=== PATIENT | male | born 1995 | race Hispanic/Latino ===

== ENCOUNTER 2020-07-05 15:45 | Emergency (ER) | payer OTHER, SELFPAY ==
[2020-07-05 16:09] LABS: #Basophils 0.1 thou/uL (0.0-0.2); #Eosinphils 0.3 thou/uL (0.0-0.7); #Lymphocytes 3.1 thou/uL (1.20-3.40); #Monocytes 0.5 thou/uL (0.11-0.59); #Neutrophils 3.8 thou/uL (1.40-6.50); %Basophils 1.1 % (0.0-1.0); %Eosinophils 4.3 % (0.0-10.0); %Lymphocytes 39.2 % (21.0-51.0); %Monocytes 6.7 % (0.0-10.0); %Neutrophils 48.7 % (42.0-75.0); Hemoglobin 14.8 g/dL (14.0-18.0); Mean Corpuscular HGB CONC 32.7 g/dL (32.0-36.0); Mean Corpuscular Hemoglobin 30.4 pg (27.0-31.0); Mean Corpuscular Volume 92.8 fL (78.0-98.0); Platelet Count 292 thou/uL (130-400); RBC Distribution Width 12.7 % (11.5-14.5); Red Blood Cell (RBC) Count 4.87 mill/uL (4.70-6.10); White Blood Cell (WBC) Count 7.8 thou/uL (4.8-10.8)
[2020-07-05] MEDS ORDERED: Naloxone HCl 0.4 mg/ml Vial ONE (16:09)
[2020-07-05 16:18] LABS: ALT (SGPT) 32 U/L (8-55); AST (SGOT) 38 U/L (5-34); Albumin 4.4 g/dL (3.5-5.0); Alcohol 229 mg/dL (Less than 10); Alkaline Phosphatase 67 U/L (40-110); Anion Gap 25 mmol/L (10-20); BUN (Urea Nitrogen) 18 mg/dL (8.9-20.6); Bilirubin, Total 0.3 mg/dL (0.2-1.2); Calc. Creatinine Clearance 0 mL/min (70-130); Carbon Dioxide 13 mmol/L (22-29); Chloride 104 mmol/L (98-107); Globulin 2.7 g/dL (2.4-3.5); Glucose 97 mg/dL (70-105); Protein, Total 7.1 g/dL (6.0-8.3); Sodium 139 mmol/L (136-145)
[2020-07-05 16:29] LABS: Bilirubin Negative (Negative); Blood, Urine Trace (Negative); Clarity Clear (Clear); Glucose, Urine (Dipstick) Negative (Negative); Ketone, Urine Negative (Negative); Leukocyte Negative (Negative); Nitrite Negative (Negative); Protein, Urine (Dipstick) 100 mg/dL (Neg-Trace); Urobilinogen 0.2 mg/dL (Less than 2); pH, Urine 6.5 (5.0-9.0)
[2020-07-05] MEDS ORDERED: Thiamine HCl 200 MG/2 ML VIAL ONE (16:33)
[2020-07-05] MEDS ORDERED: Multivit, Adult Inj 10 ML VIAL ONE (16:33)
[2020-07-05] MEDS ORDERED: Dextrose 5 %-0.45 % NaCl 1,000 ML ONE (16:35)
--- NOTE | 2020-07-05 16:41 | CT ---
CT BRAIN WITHOUT CONTRAST: HISTORY: Injury, intoxication, headache FINDINGS: No evidence of acute infarct, hemorrhage, midline shift or abnormal extra-axial fluid collections is seen. The ventricular size is appropriate and the basilar cisterns are patent. The bony calvarium is intact. The visualized paranasal sinuses and mastoid air cells are well aerated. IMPRESSION: No CT evidence of acute intracranial process.
--- NOTE | 2020-07-05 16:45 | CT ---
CT CERVICAL SPINE WITH CORONAL AND SAGITTAL REFORMATIONS AND NO IV CONTRAST: HISTORY: Injury, neck pain FINDINGS: There is loss of cervical lordosis with straightening of the cervical spine. No fracture, subluxation or facet malalignment is identified. The visualized lung apices are unremarkable. An endotracheal tube is seen with tip at C3-4 level. IMPRESSION: No CT evidence for fracture or traumatic subluxation.
[2020-07-05 16:47] LABS: Amphetamine Detected (NotDetected); Barbiturates Screen Not Detected (NotDetected); Benzodiazepine Screen Not Detected (NotDetected); Cocaine Metabolite Screen Not Detected (NotDetected); Medtox Control Line Valid? VALID (VALID); Methadone Not Detected (NotDetected); Methamphetamine Detected (NotDetected); Opiate Screen Not Detected (NotDetected); Oxycodone Screen Not Detected (NotDetected); Phencyclidine (PCP) Not Detected (NotDetected); THC/Cannabinoid Screen Detected (NotDetected); Tricyclic Screen Not Detected (NotDetected)
[2020-07-05 16:49] LABS: Specific Gravity, Urine 1.023 (1.005-1.030)
[2020-07-05 16:50] LABS: RBC/HPF 0-3 HPF (0-3); Squamous Epithelial 0-3 HPF (0-3); WBC/HPF 0-3 HPF (0-3)
[2020-07-05] MEDS ORDERED: Potassium Chloride 20 MEQ/100 ML PREMIX BAG ONE (17:23)
[2020-07-05] MEDS ORDERED: Potassium Chloride 10 MEQ/100 ML PREMIX BAG ONE ×2 (17:30→19:15)
[2020-07-05] MEDS ORDERED: Sodium Chloride 0.9% 1,000 ML ONE ×2 (19:15→19:16)
== END 2020-07-06 00:35 ==
LOC: NAV ERS 15:45
DX: S40.212A Abrasion of left shoulder, initial encounter (principal); S60.512A Abrasion of left hand, initial encounter; F10.129 Alcohol abuse with intoxication, unspecified; Y04.0XXA Assault by unarmed brawl or fight, initial encounter
CPT/HCPCS: 36415; 51702; 70450; 72125; 80053; 80306; 80307; 81003; 81015; 85025; 87635; 96365; 96366; 96375; J2310; J3411; J3480; J7042; J7050; U0003; U0005